=== PATIENT | female | born 1980 | race Caucasian/White ===

== ENCOUNTER 2022-04-24 11:24 | Inpatient (IN) | payer OTHER ==
[~2022-04-24] VITALS: Ht 152.4 cm; Wt 41.7 kg
[2022-04-24 11:31] VITALS: BP_SYST 145
--- NOTE | 2022-04-24 11:45 | NUR ---
pt ambulated to bed 3
--- NOTE | 2022-04-24 11:59 | NUR ---
42yo f c/o palpitation since yestrday. also complains of heavy irregular menstrual period for the past week, stating that she changes heavily soaked pads q2 hours. (+)headache, (+)dizziness. denies chest pain. in ed, vss. aox3. clear breath sounds. normal rate regular rhythm. with noted pallor. ermd made aware of pt status.
[2022-04-24 12:52] LABS: BASOPHILS # (AUTO) 0.1 K/uL (0.0-0.2); BASOPHILS % (AUTO) 1.4 % (0.0-2.0); LYMPHOCYTES % (AUTO) 10.5 % (20.5-51.5); MEAN CORPUSCULAR HEMOGLOBIN 31 pg (27-31); MEAN CORPUSCULAR HGB CONC 33 % (32-36); MEAN CORPUSCULAR VOLUME 94 fL (79.0-98.0); MONOCYTES # (AUTO) 0.5 K/uL (0.0-1.0); MONOCYTES % (AUTO) 5.2 % (1.7-9.3); NEUTROPHILS # (AUTO) 7.6 K/uL (1.8-7.7); NEUTROPHILS % (AUTO) 82.9 % (40.0-70.0); PLATELET COUNT (AUTO) 309 K/uL (130-430); RED CELL DISTRIBUTION WIDTH 15.7 % (9.0-15.0); WHITE BLOOD COUNT (AUTO) 9.2 K/uL (4.8-10.8)
[2022-04-24 12:53] LABS: HEMATOCRIT 17.2 % (36-48); HEMOGLOBIN 5.7 g/dL (12.0-16.0); RED BLOOD CELL COUNT(AUTO) 1.83 MIL/uL (4.2-6.2)
[2022-04-24 13:46] LABS: CALCIUM 8.7 mg/dL (8.4-11.0); CREATININE 0.57 mg/dL (0.55-1.30); POTASSIUM 3.9 mmol/L (3.5-5.1)
[2022-04-24 13:50] LABS: ALBUMIN 3.4 g/dL (3.4-4.8); TOTAL BILIRUBIN 0.2 mg/dL (0.0-1.0)
--- NOTE | 2022-04-24 14:27 | NUR ---
Note pamela in ED - 04/24/22 at 1626 by [id number] Admit bed requested Patient will be admitted to care of . Admitted to MED SURG unit. Diagnosis SEVERE ANEMIA Inpatient (Yes or No) YE Observation (Yes or No) NO Orientation concerns or request close to nursing station (Yes or No) NO Covid Status PENDING On vent or bipap NO Isolation requirements NO Needs a sitter NO From Home (Yes or if No enter name of facility) YES Requires Dialysis (Yes or No) NO Med Rec Completed (Yes of No) YES
[2022-04-24] MEDS ORDERED: MUPIROCIN 2% TOPICAL OINTMENT 22 GM NS PRN (14:30)
[2022-04-24] MEDS ORDERED: POTASSIUM CHLORIDE 20 MEQ TAB.PRT.SR PO PRN (14:30)
[2022-04-24] MEDS ORDERED: MAGNESIUM SULFATE 50 ML IV PRN (14:30)
[2022-04-24] MEDS ORDERED: LORazepam 2 MG/ML VIAL IVP PRN (14:30)
[2022-04-24] MEDS ORDERED: ONDANSETRON HCL 4 MG/2 ML VIAL IVP PRN (14:30)
[2022-04-24] MEDS ORDERED: DOCUSATE SODIUM 100 MG CAPSULE PO PRN (14:30)
[2022-04-24] MEDS ORDERED: MORPHINE 2 MG/ML INJ. SYRINGE IVP PRN ×2 (14:30)
[2022-04-24] MEDS ORDERED: ACETAMINOPHEN 325 MG TABLET PO PRN (14:30)
[2022-04-24] MEDS ORDERED: ZOLPIDEM TARTRATE 5 MG TABLET PO PRN (14:30)
--- NOTE | 2022-04-24 14:35 | NUR ---
COVID SWAB DONE AND WALKED TO LAB
[2022-04-24 15:08] LABS: TOTAL IRON BIND. CAPACITY 301 ug/dL (250-450)
--- NOTE | 2022-04-24 16:26 | NUR ---
Admit bed requested Patient will be admitted to care of . Admitted to MED SURG unit. Diagnosis SEVERE ANEMIA Inpatient (Yes or No) YES Observation (Yes or No) NO Orientation concerns or request close to nursing station (Yes or No) NO Covid Status NEGATVE On vent or bipap NO Isolation requirements NO Needs a sitter NO From Home (Yes or if No enter name of facility) YES Requires Dialysis (Yes or No) NO Med Rec Completed (Yes of No) YES
--- NOTE | 2022-04-24 18:10 | NUR ---
BLOOD TRANSFUSION STARTED AT THIS TIME Consent signed per patient agreeing to administration of blood. Blood has been type and crossmatched. Blood sent from blood bank. Information on unit of blood checked against patient wristband at bedside by two nurses. All information matches. Patient or responsible libertarian informed of potential complications associated with blood transfusion. Informed of possible transfusion reaction symptoms. Aware of need to notify nurse at once of itching, shortness of breath, flushing, feeling of impending doom, or other symptoms not previously present. Vital signs taken within 5 minutes prior to initiation of transfusion. RN will remain with patient for first 15 minutes of transfusion at which time vital signs will be re-assessed.
--- NOTE | 2022-04-24 18:25 | NUR ---
PATIENT TOLERATING BLOOD TRANSFUSION WELL. NO ADVERSE REACTIONS NOTED.
--- NOTE | 2022-04-24 19:29 | NUR ---
report given to rigo watson. all cares transferred at this time.
--- NOTE | 2022-04-24 19:38 | NUR ---
Patient will be admitted to care of DR ALVARENGA. Admitted to unit. Will go to room . Belongings list completed. Complete and up to date summary report printed. SBAR report given at bedside TO MALIHA RN with opportunity for questions.
--- NOTE | 2022-04-24 19:40 | NUR ---
ADMIT NOTE Received pt from ER to the floor with a diagnosis of severe anemia. Admission process initiated. patient oriented to pain management, safety and call light-teach back done.
[2022-04-24 19:45] VITALS: BP_SYST 115
[2022-04-24 21:15] VITALS: BP_SYST 107
--- NOTE | 2022-04-24 21:15 | NUR ---
Blood Transfusion Ended Blood transfusion that had been started in ED was stopped at 2114. BP 107/64, temp 98.7, HR 97, RR 16. No sign of reaction noted.
[2022-04-24 21:30] VITALS: BP_SYST 115
[2022-04-25] VITALS (7 sets, daily range): BP systolic 93–116
--- NOTE | 2022-04-25 02:08 | NUR ---
BT INITIATION: Consent signed per patient agreeing to administration of blood. Blood has been type and crossmatched. Blood sent from blood bank. Information on unit of blood checked against patient wristband at bedside by two nurses. All information matches. Patient or responsible democrat informed of potential complications associated with blood transfusion. Informed of possible transfusion reaction symptoms. Aware of need to notify nurse at once of itching, shortness of breath, flushing, feeling of impending doom, or other symptoms not previously present. Vital signs taken within 5 minutes prior to initiation of transfusion. RN will remain with patient for first 15 minutes of transfusion at which time vital signs will be re-assessed.
--- NOTE | 2022-04-25 04:01 | NUR ---
CONSULT: CONSULT CALLED FOR DR. TAPIA I SPOKE TO SEKOU INIGUEZ REASON FOR CONSULT: UTERINE FIBROIDS EXCESSIVE BLEEDING REQUESTING CONSULT: DR. ALVARENGA [employer]GON[facility]ICS CONSULTANT PHONE NUMBER: [phone]
[2022-04-25 07:11] LABS: BASOPHILS % (AUTO) 0.4 % (0.0-2.0); EOSINOPHILS % (AUTO) 0.8 % (0.0-4.0); HEMATOCRIT 30.6 % (36-48); HEMOGLOBIN 10.4 g/dL (12.0-16.0); LYMPHOCYTES # (AUTO) 1.4 K/uL (1.0-5.5); LYMPHOCYTES % (AUTO) 20.5 % (20.5-51.5); MEAN CORPUSCULAR HEMOGLOBIN 31 pg (27-31); MEAN CORPUSCULAR HGB CONC 34 % (32-36); MEAN CORPUSCULAR VOLUME 91 fL (79.0-98.0); MONOCYTES # (AUTO) 0.6 K/uL (0.0-1.0); MONOCYTES % (AUTO) 8.8 % (1.7-9.3); NEUTROPHILS # (AUTO) 4.6 K/uL (1.8-7.7); NEUTROPHILS % (AUTO) 69.5 % (40.0-70.0); PLATELET COUNT (AUTO) 251 K/uL (130-430); RED BLOOD CELL COUNT(AUTO) 3.35 MIL/uL (4.2-6.2); RED CELL DISTRIBUTION WIDTH 14.7 % (9.0-15.0); WHITE BLOOD COUNT (AUTO) 6.6 K/uL (4.8-10.8)
--- NOTE | 2022-04-25 08:00 | NUR ---
OPENING NOTES: PATIENT EATING BREAKFAST. HOB ELEVATED. DENIES ANY DISCOMFORT AT THIS TIME. FALL AND SAFETY MEASURES REINFORCED. CALL LIGHT WITHIN REACH.
[2022-04-25 08:06] LABS: FERRITIN 28 ng/mL (15-150)
--- NOTE | 2022-04-25 10:18 | NUR ---
CONSULT GYNECOLOGY UTERINE FIBROIDS,EXCESSIVE BLEEDING DR TAPIA [phone] S/[facility]
[2022-04-25 11:07] LABS: FOLATE (FOLIC ACID) >20.0 ng/mL (>3.0)
--- NOTE | 2022-04-25 15:10 | NUR ---
D/C Patient Patient given medication reconciliation form and D/C instructions. Exit Care provided. Patient verbalized understanding. MD discussed with patient the results and treatment provided. Ambulatory with steady gait for discharge to home. Patient in stable condition, ID band removed. IV catheter removed, intact and dressing applied, no active bleeding. Rx given by Dr. Lora. All belongings sent with patient.
== END 2022-04-25 15:10 | disposition home or self-care (01) | DRG 812 ==
LOC: SED 11:24 → SMU 14:27
PROVIDERS: ADMIT General Practice; ATTEND General Practice
PROC: 30233N1 Transfusion of Nonautologous Red Blood Cells into Peripheral Vein, Percutaneous Approach (ICD-10-PCS; principal; 2022-04-24)
DX: D50.0 Iron deficiency anemia secondary to blood loss (chronic) (principal); N93.8 Other specified abnormal uterine and vaginal bleeding; Z20.822 Contact with and (suspected) exposure to COVID-19; N92.0 Excessive and frequent menstruation with regular cycle; E05.90 Thyrotoxicosis, unspecified without thyrotoxic crisis or storm
CPT/HCPCS: 36415; 36430; 76856-TC; 80053; 82607; 82728; 82746; 83540; 83550; 85025; 86886; 86900; 86901; 86920; 93005; 99291; P9021